=== PATIENT | male | born 2000 | race Caucasian/White ===

== ENCOUNTER 2018-01-05 07:32 | Day surgery (SDC) | payer BC ==
[2017-12-23 12:49] VITALS: BMI 23.0
[~2018-01-05] VITALS: Ht 177.8 cm; Wt 72.7 kg
--- NOTE | 2018-01-05 06:07 | History & Physical Bridge Note ---
H&P Re-Evaluation Bridge Note: I have examined the patient, reviewed the History & Physical and in the interval since the performance of the History & Physical I have noted the following changes of clinical significance: No changes noted
[~2018-01-05 07:32] MED LIST: CEFAZOLIN 1000MG IV PUSH 7.5 ML IV SCH; DEXAMETHASONE SOD INJ 4 MG/ML VIAL IV SCH; IBUP-1050 PO; LACTATED RINGER'S 1000ML 1,000 ML IV SCH; LIDOCAINE HCL 2% JELLY 30 ML TUBE ONE; OXYMETAZOLINE HCL 0.05% NA SPR 15 ML BTL ONE; [UNRECOGNIZED DRUG - REMARK] PO
[2018-01-05 08:00] VITALS: BP 130/74; PULSE 65; TEMP 36.7; O2SAT 99; Ht 177.8 cm; Wt 72.7 kg
[2018-01-05] MEDS ORDERED: ACET-1256 PO (08:04)
[2018-01-05] MEDS ORDERED: DEXAMETHASONE INJ 8 MG in SYRINGE 0 ML IV SCH (08:45)
[2018-01-05] MEDS ORDERED: SCOPOLAMINE 1.5 MG TDSY TD ONE (09:22)
[2018-01-05] MEDS ORDERED: SCOPOLAMINE 1.5 MG TDSY TD SCH (09:30)
[2018-01-05] MEDS ORDERED: ATROPINE SULFATE 0.1 MG/ML 5ML SYR IV PRN (09:30)
[2018-01-05] MEDS ORDERED: HYDROmorphone INJ 1 MG/ML SYR IV PRN (09:30)
[2018-01-05] MEDS ORDERED: ONDANSETRON INJ 2 MG/ML 2 ML VIAL IV PRN ×2 (09:30→11:30)
[2018-01-05] MEDS ORDERED: EpHEDrine SULFATE INJ 50 MG/ML AMP IV PRN (09:30)
[2018-01-05] MEDS ORDERED: BUPIVACAINE/EPINEPHRINE 0.5% 1:200,000 1.8 ML CARP ONE ×3 (09:41→10:37)
[2018-01-05] MEDS ORDERED: LIDOCAINE 4% INH SOLN 4 ML BTL ONE (09:42)
[2018-01-05] MEDS ORDERED: TRIAMCINOLONE ACET 0.1% OINT 15 GM TUBE ONE (09:42)
[2018-01-05] MEDS ORDERED: MIDAZOLAM HCL 1 MG/ML 2ML VIAL ONE (09:49)
[2018-01-05] MEDS ORDERED: FENTANYL CITRATE INJ 50 MCG/1 ML 2 ML VIAL ONE (09:49)
[2018-01-05] MEDS ORDERED: LIDOCAINE HCL 2% 2 ML VIAL (20MG/ML) ONE (10:28)
[2018-01-05] MEDS ORDERED: ROCURONIUM BROMIDE 10 MG/ML 5 ML VIAL ONE (10:28)
[2018-01-05] MEDS ORDERED: ONDANSETRON INJ 2 MG/ML 2 ML VIAL ONE (10:28)
[2018-01-05] MEDS ORDERED: HYDROmorphone INJ 2 MG/ML SYR/VIAL ONE (10:28)
[2018-01-05] MEDS ORDERED: PROPOFOL IV EMULSION 10 MG/ML 20 ML VIAL ONE ×2 (10:28→11:13)
[2018-01-05] MEDS ORDERED: NEOSTIGMINE METHYLSULFATE 5 MG/5 ML SYR ONE (11:12)
[2018-01-05] MEDS ORDERED: GLYCOPYRROLATE INJ 0.2 MG/ML VIAL ONE (11:12)
--- NOTE | 2018-01-05 11:26 | [facility] Operative Report ---
Operative Report Operative Date January 05, 2018. Pre-Operative Diagnosis Constricted Maxillary Arch, Impacted/Malpositioned [place] Teeth Post-Operative Diagnosis Constricted Maxillary Arch, Impacted/Malpositioned [place]eth Procedure(s) Performed Maxillary [place] I Osteotomy, Removal of [address] [place] [address] 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 [place] Osteotomy in 2 pieces completed with proper expansion. I attest to the content of the Intraoperative Record and any orders documented therein. Any exceptions are noted below.
[2018-01-05] MEDS ORDERED: ACETAMINOPHEN/HYDROCODONE ELIX 15 ML/CUP UDP PO PRN (11:30)
[2018-01-05] MEDS ORDERED: SODIUM CHLORIDE 0.65% NA SOLN 45 ML (OCEAN) PRN (11:30)
[2018-01-05] MEDS ORDERED: ACETAMINOPHEN SOLN 650MG/20.3 ML UDC PO PRN (11:30)
[2018-01-05] MEDS ORDERED: OXYMETAZOLINE HCL 0.05% NA SPR 15 ML BTL PRN (11:30)
[2018-01-05] MEDS ORDERED: MoRPHine SULFATE 4 MG/ML 1 ML CARP\\VIAL IV PRN ×2 (11:30)
--- NOTE | 2018-01-05 11:31 | Discharge Instructions ---
Discharge Instructions Date of Service January 05, 2018. Admission Reason for Admission: Maxillary Hypoplasia; Impacted Teeth Discharge Discharge Diagnosis / Problem: Same Discharge Goals Goal(s): Improve function Activity Recommendations Activity Limitations: per Instructions/Follow-up section Lifting Limitations: no more than 25 pounds Exercise/Sports Limitations: gradually increase as tolerated Shower/Bathe: no limitations Driving or Machine Use: resume 3 days after discharge Start working out in about a week and gradually increase as you tolerate it. . Current Hospital Diet Patient's current hospital diet: Clear Liquid Diet Discharge Diet Recommended Diet: Full Liquid Diet Procedures Procedures Performed: Maxillary [place] I Osteotomy, Removal of 4 [place] Teeth Pending Studies Studies pending at discharge: no Medical Emergencies . Who to Call and When: Medical Emergencies: If at any time you feel your situation is an emergency, please call 911 immediately. . Non-Emergent Contact Non-Emergency issues call your: Surgeon Dr Rosario - office [phone], cell [phone] . "Provider Documentation" section prepared by Vicente Rosario. . [place] Drug Monitoring Program Search Results: patient reviewed within database, no issues identified
[2018-01-05] MEDS: FENTANYL CITRATE INJ 50 MCG/1 ML 2 ML VIAL IV PRN ×2 (11:50→12:11)
[2018-01-05] MEDS ORDERED: HYDROmorphone INJ 0.5 MG/0.5 ML SYR ONE (11:56)
[2018-01-05] MEDS ORDERED: KETOROLAC TROMETHAMINE 30 MG/ML VIAL IV. SCH (12:00)
--- NOTE | 2018-01-05 12:17 | OPERATIVE REPORT ---
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 PROCEDURE: Removal of full bony impacted wisdom teeth #1, #16, #17 and #32, maxillary [place] I osteotomy in 2 pieces for rapid palatal expansion. SURGEON: Vicente Rosario DDS STEEL MOLDER: Zoraida Hunt. ANESTHESIA: General nasal endotracheal. ESTIMATED BLOOD LOSS: 50 mL DRAINS: None. SPECIMENS: None. COMPLICATIONS: None. 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 This results in dental crowding and a significant malocclusion. He has had ongoing management by his criminal defense lawyer, Dr. Munoz, and he is now ready for expansion of his maxilla as the next stage of his orthodontic treatment. In the long-term, after his definitive orthodontics are largely complete, we will likely come back for a mandibular advancement surgery. I have had the ability to interview Dhruv and discussed with him his options for treatments, the indicated surgery, the details of the surgery, the associated risks and benefits. He has signed an informed consent and he has had his routine pre-anesthesia testing and felt to be a good candidate for the surgery medically. DESCRIPTION OF PROCEDURE: The patient was taken to the operating room and placed supine on the operating room table. Routine anesthesia monitors were applied. General anesthesia was induced and nasal endotracheal intubation was performed. Eyes were lubed and taped. The endotracheal tube was secured. We entered the oral cavity, placed a throat pack, irrigated the oral cavity with chlorhexidine suctioned it clear and used 0.5% Marcaine with 1:200,000 epinephrine as local anesthesia both bilaterally in the mandible as well as bilaterally in the maxilla. We began with his wisdom teeth. On the right side, typical lower hockey stick incision was made over the lower tooth and a linear incision over the maxillary wisdom tooth. The soft tissue flap on the maxillary wisdom tooth was elevated, the tooth was then uncovered under the bone and a straight elevator was used to remove the tooth. The flap was replaced. The mandible was then approached. The flap was elevated there and a round bur was used to remove overlying bone past the height of contour and then the wisdom tooth was elevated and removed. The socket was irrigated and then closed with two 4-0 chromic gut sutures. The left hand side was then approached and the similar procedure accomplished. A linear incision in the gingiva over the upper left impacted wisdom tooth was created. The soft tissue flap was elevated. Bone was removed overlying the tooth and then the tooth was elevated and removed and the flap repositioned. In the mandible, the full thickness flap was elevated. A javier was used to remove overlying bone. The tooth was then elevated out of its bony socket. The socket was irrigated carefully and closed with two 4-0 chromic gut sutures. Finally, the anterior maxilla was approached. The typical upper buccal sulcus incision was created with the needle tipped electrocautery, carried down to the bone and subperiosteal dissection was done to expose the anterior maxilla. The reciprocating saw was used to complete the [place] I osteotomy, then nasal septum was elevated from the maxilla with a straight osteotome. Osteotomies and lateral nasal rdz were completed with a single guarded osteotome and then the sagittal saw was used to carefully create an osteotomy between the central incisor teeth. The palatal suture was opened with a straight osteotome and a mallet and then the expansion device was activated for 6 turns to ensure that there was adequate expansion across the bony segments and it was even bilaterally. I checked for any bony interferences and they were removed, some small interferences were found at the buttress and these were cleared. The wounds were irrigated and then closed with a running 4-0 chromic gut suture. The patient was turned over to anesthesia, extubated in the operating room and transferred to the recovery area in stable condition. At the end of the procedure, all counts were correct.
[2018-01-05 12:35] VITALS: BP 155/83; PULSE 50; TEMP 36; O2SAT 97
--- NOTE | 2018-01-05 12:38 | Anesthesiology Progress Note ---
Anesthesia Post Op Note Date & Time January 05, 2018 at 12:38 Vital Signs Pain Intensity: 4 Vital Signs Past 12 Hours Date Time Temp Pulse Resp B/P (MAP) Pulse Ox O2 Delivery O2 Flow Rate FiO2 01/05/18 12:31 137/88 01/05/18 12:29 53 14 97 01/05/18 12:29 54 14 01/05/18 12:28 36.7 94 Room Air 01/05/18 12:26 138/85 01/05/18 12:24 44 16 97 01/05/18 12:24 44 16 01/05/18 12:23 46 16 01/05/18 12:23 46 16 99 01/05/18 12:22 146/54 01/05/18 12:18 48 16 100 01/05/18 12:18 49 16 01/05/18 12:17 146/87 01/05/18 12:13 51 14 100 01/05/18 12:13 50 14 01/05/18 12:12 134/92 01/05/18 12:08 56 16 01/05/18 12:08 53 16 100 01/05/18 12:07 50 16 01/05/18 12:07 48 16 158/57 100 01/05/18 12:03 151/85 01/05/18 12:02 53 12 01/05/18 12:02 54 12 100 01/05/18 11:57 51 16 100 01/05/18 11:57 51 8 01/05/18 11:56 141/99 01/05/18 11:52 55 14 100 01/05/18 11:52 55 14 01/05/18 11:51 160/104 01/05/18 11:48 145/102 01/05/18 11:47 53 14 01/05/18 11:47 52 14 100 01/05/18 11:47 36.3 56 16 145/102 100 Oxymask 10 01/05/18 08:00 36.7 65 18 130/74 (92) 99 Room Air Notes Mental Status: alert / awake / arousable, participated in evaluation Pt Amnestic to Procedure: Yes Nausea / Vomiting: adequately controlled Pain: adequately controlled Airway Patency, RR, SpO2: stable & adequate BP & HR: stable & adequate Hydration State: stable & adequate Anesthetic Complications: no major complications apparent
[2018-01-05 13:05] VITALS: BP 148/75; PULSE 52; O2SAT 98
[2018-01-05] MEDS ORDERED: KETOROLAC TROMETHAMINE 30 MG/ML VIAL ONE (13:05)
[2018-01-05] MEDS ORDERED: ACETAMINOPHEN/HYDROCODONE ELIX 15 ML/CUP UDP ONE (13:05)
[2018-01-05 13:34] VITALS: BP 140/77; PULSE 63; TEMP 36.9; O2SAT 100
[2018-01-05] MEDS ORDERED: CHECK SCOPOLAMINE PATCH PLACEMENT SCH (16:00)
[2018-01-05] MEDS ORDERED: TRIAMCINOLONE ACET 0.1% OINT 15 GM TUBE EXT SCH (21:00)
== END 2018-01-05 13:58 | disposition home or self-care (01) ==
LOC: C.ACU 07:32
PROVIDERS: ATTEND Dentist Oral and Maxillofacial Pathology
DX: M26.02 Maxillary hypoplasia (principal); M26.29 Other anomalies of dental arch relationship; K01.1 Impacted teeth; F12.10 Cannabis abuse, uncomplicated; Z91.013 Allergy to seafood